=== PATIENT | male | born 1970 | race Hispanic/Latino ===

== ENCOUNTER 2019-06-29 10:15 | Emergency (ER) | payer OTHER ==
[2019-06-29] MEDS ORDERED: DOXYCYCLINE HYCLATE 100 MG TABLET PO ONE (10:47)
== END 2019-06-29 11:33 | disposition home or self-care (01) ==
LOC: EDH 10:15
DX: L02.415 Cutaneous abscess of right lower limb (principal); E11.9 Type 2 diabetes mellitus without complications; Z79.4 Long term (current) use of insulin; Z88.1 Allergy status to other antibiotic agents
CPT/HCPCS: 82948